=== PATIENT | female | born 1990 | race Caucasian/White ===

== ENCOUNTER 2022-05-22 10:35 | Emergency (ER) | payer SELFPAY ==
[2022-05-22] MEDS ORDERED: Diphtheria,Pertussis(Acell),Tetanus Vaccine 0.5 ML Syringe IM ONE (11:22)
[2022-05-22] MEDS ORDERED: Lidocaine 1% 10 ML MDV INJECT ONE (11:22)
== END 2022-05-22 12:43 | disposition home or self-care (01) ==
LOC: JD.ED 10:35
DX: S81.812A Laceration without foreign body, left lower leg, initial encounter (principal); F17.210 Nicotine dependence, cigarettes, uncomplicated; Z88.5 Allergy status to narcotic agent; Z23 Encounter for immunization; W26.8XXA Contact with other sharp object(s), not elsewhere classified, initial encounter
CPT/HCPCS: 12004; 90471; 90715; 99282-25